=== PATIENT | male | born 1955 | race American Indian/Alaskan Native ===

== ENCOUNTER 2019-09-16 11:54 | Inpatient (IN) | payer OTHER, SELFPAY ==
[~2019-09-16] VITALS: Ht 175.3 cm; Wt 83.4 kg
[~2019-09-16 11:54] MED LIST: ATO40T PO; BENA20TA14 PO; INSLANTI SC; LEVO200T46 PO; LIRA18IN2 SC; METO25TA5 PO; SITA100T7 PO
[2019-09-16] MEDS ORDERED: SODIUM CHLORIDE 0.9% 1,000 ML IV ONE ×3 (12:29→12:45)
[2019-09-16] MEDS ORDERED: ONDANSETRON HCL 4 MG/2 ML VIAL IV ONE ×2 (12:30→12:45)
[2019-09-16] MEDS ORDERED: ONDANSETRON HCL 4 MG/2 ML VIAL ONE (12:34)
[2019-09-16 12:54] LABS: Basophils # (auto) 0.1 10 ^3/uL (0-0.2); Basophils % (auto) 0.4 % (0.0-2.0); Eosinophils # (auto) 0.1 10 ^3/uL (0-0.8); Eosinophils % (auto) 0.7 % (0.0-7.0); Hematocrit 43.1 % (41.0-53.0); Hemoglobin 15.3 g/dL (13.5-17.5); Lymphocytes % (auto) 6.7 % (10.0-50.0); Mean Corpuscular Hemoglobin 31.2 pg (28.0-32.0); Mean Corpuscular Hgb Conc. 35.5 g/dL (32.0-36.0); Mean Corpuscular Volume 87.9 fL (80.0-100.0); Monocytes # (auto) 0.9 10 ^3/uL (0-1.3); Monocytes % (auto) 6.3 % (0.0-12.0); Neutrophils # (auto) 12.5 10 ^3/uL (1.6-8.6); Neutrophils % (auto) 85.9 % (37.0-80.0); Nucleated Red Blood Cells % 0.1 %; Platelet Count (auto) 259 10^3/uL (140-450); Red Cell Distribution Width 13.7 % (11.8-14.3); White Blood Cell 14.6 10^3/uL (4.4-10.8)
[2019-09-16 13:09] LABS: Albumin 3.5 g/dL (3.4-5.0); Anion Gap 14 (5-15); Blood Urea Nitrogen 11 mg/dL (7-18); Calcium 8.6 mg/dL (8.5-10.1); Carbon Dioxide 23 mmol/L (21-32); Chloride 81 mmol/L (98-107); Glucose 199 mg/dL (74-106); Potassium 3.5 mmol/L (3.5-5.1)
[2019-09-16 13:13] LABS: Alanine Aminotransferase 37 U/L (16-61); Alkaline Phosphatase 83 U/L (45-117); Aspartate Aminotransferase 40 U/L (15-37); BUN/Creatinine Ratio 9.6; Bilirubin, Total 2.9 mg/dL (0.2-1.0); GFR African American 83 mL/min; GFR Non-African American 69 mL/min; Total Protein 6.7 g/dL (6.4-8.2)
[2019-09-16 13:22] LABS: Sodium 118 mmol/L (136-145)
[2019-09-16] MEDS ORDERED: ASCORBIC ACID 500 MG TAB PO ONE (13:30)
[2019-09-16] MEDS ORDERED: cefTRIAXone 1GM/50ML D5W 50 ML IV ONE ×2 (13:30→14:15)
[2019-09-16] MEDS ORDERED: PROMETHAZINE HCL 25 MG/ML 1ML IV ONE (14:00)
[2019-09-16] MEDS ORDERED: CHOLECALCIFEROL (VITD3) 1,000UNIT=25mCg TAB ONE (14:08)
[2019-09-16] MEDS: SODIUM CHLORIDE 0.9% 1,000 ML IV SCH ×2 (14:11→23:53)
[2019-09-16] MEDS ORDERED: LORazepam 0.5 MG TAB PO PRN (14:15)
[2019-09-16] MEDS ORDERED: PROMETHAZINE HCL 25 MG/ML 1ML IV PRN (14:15)
[2019-09-16] MEDS ORDERED: MORPHINE SULF INJ 2 MG/ML SYRINGE 1ML IV PRN (14:15)
[2019-09-16] MEDS ORDERED: ACETAMINOPHEN 500 MG TAB PO PRN (14:15)
[2019-09-16] MEDS ORDERED: traMADol HCL 50 MG TAB PO PRN (14:15)
[2019-09-16] MEDS ORDERED: ALBUTEROL SULF 2.5 MG/0.5ML(0.5%) NEB SOLN NEB PRN (14:15)
[2019-09-16] MEDS ORDERED: NITROGLYCERIN 0.4 MG SL TAB SL PRN (14:15)
[2019-09-16] MEDS ORDERED: DEXTROSE (50%) 50ML SYRG IV PRN (14:15)
[2019-09-16] MEDS ORDERED: CHOLECALCIFEROL (VITD3) 1,000UNIT=25mCg TAB PO ONE (14:45)
[2019-09-16 14:46] LABS: Amylase 19 U/L (25-115); Lipase 67 U/L (73-393)
--- NOTE | 2019-09-16 15:20 | NUR ---
Received report from Dee AMBROSIO in ER @1510 and patient to floor at 1520. Telemetry admit from ER CHRISTY EDWARDSALL admitted to Telemetry unit after SBAR received. Patient oriented to TAM JOHN, RN primary RN, and room 235A, and unit policies regarding patient care and visiting hours. Patient now on continuous telemetry monitoring, tele box # 8 . Patient placed on bedside oxygen, weighed by bedscale and encouraged to call if they need something. All questions and concerns addressed, patient verbalized understanding.
[2019-09-16 16:00] VITALS: BP 158/62
[2019-09-16] MEDS: metroNIDAZOLE 500MG/100ML 100 ML IV SCH ×2 (17:04→21:29)
[2019-09-16] MEDS: InsuLIN REG 1unit/0.01ml Soln (100units/ml) SC SCH ×2 (17:29→21:29)
[2019-09-16] MEDS: ACCU-CHEK COMFORT CURVE STRIP VI SCH ×2 (17:30→21:29)
[2019-09-16 18:00] VITALS: BP 162/92
--- NOTE | 2019-09-16 18:59 | NUR ---
Paged immigration lawyer hospitalist regarding patients blood pressure. Dr. De Oliveira called back orders received, will document and carry out
--- NOTE | 2019-09-16 20:15 | NUR ---
Opening Shift Note Assumed care of patient, awake and alert. No S/S of distress/SOB or pain noted. New iv placed to left forearm 22guage. patient tolerated well. Instructed on POC and to call for assist PRN.
[2019-09-16] MEDS: METOPROLOL TARTRATE 25 MG TAB PO SCH (20:30)
[2019-09-16] MEDS: FAMOTIDINE 20 MG TAB PO SCH (21:29)
[2019-09-16 22:00] VITALS: BP 137/87
--- NOTE | 2019-09-16 23:56 | NUR ---
Password set up with patient: Family called regarding patient, no password set up. Spoke with patient. Patient requested password to be December 28.
[2019-09-17 05:03] VITALS: BP 120/80
[2019-09-17] MEDS: metroNIDAZOLE 500MG/100ML 100 ML IV SCH ×2 (06:24→13:13)
[2019-09-17] MEDS: ACCU-CHEK COMFORT CURVE STRIP VI SCH ×4 (06:24→21:37)
[2019-09-17] MEDS: InsuLIN REG 1unit/0.01ml Soln (100units/ml) SC SCH ×4 (07:00→21:40)
--- NOTE | 2019-09-17 07:00 | NUR ---
Unable to take obtained blood draw. Lab notified.
--- NOTE | 2019-09-17 07:30 | NUR ---
Opening Shift Note Assumed care of patient, awake and alert oriented x3. No S/S of distress/SOB or pain reported at this time. Instructed on POC and to call for assist PRN, call light within reach, able to demonstrate how to call for assist, using urinal at bedside, IV patent to left FA, site benign, will continue to monitor for changes Q1hr and PRN.
[2019-09-17 08:00] VITALS: BP 130/68
[2019-09-17] MEDS: cefTRIAXone 1GM/50ML D5W 50 ML IV SCH (09:17)
[2019-09-17] MEDS: METOPROLOL TARTRATE 25 MG TAB PO SCH ×2 (09:17→21:31)
[2019-09-17] MEDS: BENAZEPRIL HCL 10 MG TAB PO SCH (09:18)
[2019-09-17] MEDS: FAMOTIDINE 20 MG TAB PO SCH ×2 (09:18→21:27)
[2019-09-17] MEDS: CHOLECALCIFEROL (VITD3) 1,000UNIT=25mCg TAB PO SCH (09:18)
[2019-09-17 09:19] VITALS: BP 130/68
[2019-09-17 09:50] LABS: Basophils # (auto) 0.1 10 ^3/uL (0-0.2); Basophils % (auto) 0.6 % (0.0-2.0); Eosinophils # (auto) 0.3 10 ^3/uL (0-0.8); Eosinophils % (auto) 2.6 % (0.0-7.0); Hemoglobin 15.4 g/dL (13.5-17.5); Lymphocytes # (auto) 1.8 10 ^3/uL (0.4-5.4); Lymphocytes % (auto) 16.8 % (10.0-50.0); Mean Corpuscular Hemoglobin 30.9 pg (28.0-32.0); Mean Corpuscular Volume 88.4 fL (80.0-100.0); Monocytes # (auto) 1.1 10 ^3/uL (0-1.3); Monocytes % (auto) 10.2 % (0.0-12.0); Neutrophils # (auto) 7.6 10 ^3/uL (1.6-8.6); Neutrophils % (auto) 69.8 % (37.0-80.0); Nucleated Red Blood Cells % 0.2 %; Platelet Count (auto) 295 10^3/uL (140-450); Red Blood Cells 4.97 10^6/uL (4.5-5.90); Red Cell Distribution Width 13.7 % (11.8-14.3); White Blood Cell 10.9 10^3/uL (4.4-10.8)
[2019-09-17 09:55] LABS: Urine Bacteria NONE SEEN /hpf (None Seen); Urine Blood Negative /uL (Negative); Urine Specific Gravity 1.002 (1.001-1.035); Urine WBC <1 /hpf (0 - 3)
[2019-09-17 12:41] LABS: Albumin 3.5 g/dL (3.4-5.0); Calcium 8.2 mg/dL (8.5-10.1); Potassium 3.7 mmol/L (3.5-5.1)
[2019-09-17 12:44] LABS: Bilirubin, Total 2.3 mg/dL (0.2-1.0); Total Protein 7.1 g/dL (6.4-8.2)
[2019-09-17] MEDS: SODIUM CHLORIDE 0.9% 1,000 ML IV SCH (14:00)
[2019-09-17] MEDS ORDERED: POTASSIUM CHL 20 Meq TABLET PO ONE (14:00)
[2019-09-17 14:40] LABS: Amphetamine Screen, Urine NEGATIVE (NEGATIVE); Barbiturate Scree,Urine NEGATIVE (NEGATIVE); Benzodiazephine Screen, Urine NEGATIVE (NEGATIVE); Cannabinoid Screen, Urine NEGATIVE (NEGATIVE); Cocaine Screen, Urine NEGATIVE (NEGATIVE); Opiate Scree,Urine NEGATIVE (NEGATIVE); Phencyclidine Screen, Urine NEGATIVE (NEGATIVE)
[2019-09-17] MEDS ORDERED: MAGNESIUM SULFATE 1GM/100ML 100 ML IV ONE ×2 (14:45→16:15)
[2019-09-17] MEDS: LORazepam 0.5 MG TAB PO PRN (15:37)
--- NOTE | 2019-09-17 15:50 | NUR ---
NOTIFIED OF NEGATIVE COVID RESULTS SPOKE WITH DR BRADY, CONT CARE
--- NOTE | 2019-09-17 16:00 | NUR ---
CARDIOLOGY AT BEDSIDE DR ALVAREZ AT BEDSIDE, DISCUSSING POC WITH PT, CONT CARE
--- NOTE | 2019-09-17 19:20 | NUR ---
Received report from the Day RN Jami. Pt. ambulating along the faust and return to his bed.
--- NOTE | 2019-09-17 20:00 | NUR ---
Assessment done and completed.
[2019-09-17 21:00] VITALS: BP 102/55
[2019-09-17] MEDS: ATORVASTATIN 20 MG TAB PO SCH (21:27)
--- NOTE | 2019-09-17 21:27 | NUR ---
Meds. as scheduled given/administered. Pt. given health teachings about the use and mechanism of actions of the meds. as scheduled. Pt. verbalized understanding.
--- NOTE | 2019-09-17 21:35 | NUR ---
Accucheck @ taken with result of BS = 194 , See s/s coverage of Regular human insulin to be given to the pt.
--- NOTE | 2019-09-17 21:40 | NUR ---
Pt. given 3 units of Regular human Insulin SQ @ the [facility] @ 0 pm. Pt. made aware of his blood sugar and the s/s coverage. Pt. partially verbalized understanding.
--- NOTE | 2019-09-17 22:00 | NUR ---
Pt. ambulating from his room to the Nurses station often times, encouraged pt. to go back to the bed and assisted with needs.
--- NOTE | 2019-09-17 23:50 | NUR ---
Restarted 02 @ 2L/NC for 02 sat. 88 % @ this time. Pt. encouraged to lie down and rest with 02 @ 2L/NC continuous.
[2019-09-18] VITALS (7 sets, daily range): BP systolic 97–128; BP diastolic 58–73
[2019-09-18] MEDS: TEMAZEPAM 15 MG CAP PO PRN ×2 (02:21→23:38)
--- NOTE | 2019-09-18 02:21 | NUR ---
Pt. still awake in bed, unable to sleep. Pt. given Temazepam-Restoril 15 mg. po. @ this time to help relieve insomnia. Pt. encouraged to sleep. 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 Pt. denies chest pain and any pain.
[2019-09-18] MEDS: SODIUM CHLORIDE 0.9% 1,000 ML IV SCH ×2 (02:22→17:26)
--- NOTE | 2019-09-18 04:00 | NUR ---
Pt. finally sleeping without disturbance. SR @ 70 's with 1st Deg. AVB, with BBB @ the monitor Tele # 8. No s/s of pain or discomfort.
[2019-09-18 05:17] LABS: Basophils # (auto) 0.1 10 ^3/uL (0-0.2); Basophils % (auto) 0.7 % (0.0-2.0); Eosinophils # (auto) 0.4 10 ^3/uL (0-0.8); Eosinophils % (auto) 4.4 % (0.0-7.0); Hematocrit 36.8 % (41.0-53.0); Lymphocytes # (auto) 1.5 10 ^3/uL (0.4-5.4); Lymphocytes % (auto) 16.5 % (10.0-50.0); Mean Corpuscular Hemoglobin 30.9 pg (28.0-32.0); Mean Corpuscular Hgb Conc. 35.3 g/dL (32.0-36.0); Mean Corpuscular Volume 87.4 fL (80.0-100.0); Monocytes # (auto) 1.1 10 ^3/uL (0-1.3); Monocytes % (auto) 11.4 % (0.0-12.0); Neutrophils # (auto) 6.2 10 ^3/uL (1.6-8.6); Platelet Count (auto) 228 10^3/uL (140-450); Red Blood Cells 4.21 10^6/uL (4.5-5.90); Red Cell Distribution Width 13.5 % (11.8-14.3); White Blood Cell 9.3 10^3/uL (4.4-10.8)
[2019-09-18 05:34] LABS: Magnesium 2.3 mg/dL (1.6-2.6); Potassium 3.5 mmol/L (3.5-5.1)
[2019-09-18 05:39] LABS: BUN/Creatinine Ratio 14.8; Bilirubin, Total 1.3 mg/dL (0.2-1.0); Total Protein 5.7 g/dL (6.4-8.2)
--- NOTE | 2019-09-18 06:11 | NUR ---
Meds. as scheduled given @ this time. Pt. able to swallow meds. without difficulty.
[2019-09-18] MEDS: InsuLIN REG 1unit/0.01ml Soln (100units/ml) SC SCH ×4 (06:16→21:42)
[2019-09-18] MEDS: ACCU-CHEK COMFORT CURVE STRIP VI SCH ×4 (06:16→21:41)
--- NOTE | 2019-09-18 06:16 | NUR ---
Accucheck taken with result of BS = 117 , No coverage for Regular Human Insulin needed.
[2019-09-18] MEDS ORDERED: LEVOTHYROXINE SODIUM 112 MCG TAB PO SCH (07:00)
[2019-09-18] MEDS ORDERED: LEVOTHYROXINE SODIUM 25 MCG TAB PO SCH ×2 (07:00)
--- NOTE | 2019-09-18 07:42 | NUR ---
Opening Shift Note: Assumed care of patient. Patient asleep at this time. No S/S of distress/SOB or pain. Bed in lowest locked position, side rails up x 2, call light within reach. Bed alarm on for patient safety. Sitter at bedside for patient safety. Patient will instructed on POC and to call for assist PRN, will continue to monitor for changes Q1hr and PRN.
[2019-09-18] MEDS: BENAZEPRIL HCL 10 MG TAB PO SCH (09:23)
[2019-09-18] MEDS: cefTRIAXone 1GM/50ML D5W 50 ML IV SCH (09:23)
[2019-09-18] MEDS: METOPROLOL TARTRATE 25 MG TAB PO SCH (09:23)
[2019-09-18] MEDS: FAMOTIDINE 20 MG TAB PO SCH ×2 (09:24→21:41)
[2019-09-18] MEDS: CHOLECALCIFEROL (VITD3) 1,000UNIT=25mCg TAB PO SCH (09:25)
--- NOTE | 2019-09-18 10:22 | NUR ---
DR. SANTILLAN: Dr. Marshall at bedside. Discussed POC with patient. Patient verbally agreed.
[2019-09-18] MEDS ORDERED: ALBUTEROL SULF 2.5 MG/0.5ML(0.5%) NEB SOLN NEB PRN (11:30)
[2019-09-18] MEDS: LORazepam 0.5 MG TAB PO PRN (14:07)
--- NOTE | 2019-09-18 14:21 | NUR ---
Patient ambulated the faust with sitter.
--- NOTE | 2019-09-18 15:22 | NUR ---
POM Patients own medications brought up from ED. Medications taken to pharmacy. Sticker placed on chart, band placed on patient.
--- NOTE | 2019-09-18 19:06 | NUR ---
CLOSING NOTE: Patient resting in bed. No S/S of pain, distress or SOB at this time. Sitter at bedside for patient safety. Care endorsed to ULISSES RN.
[2019-09-18] MEDS: ATORVASTATIN 20 MG TAB PO SCH (21:41)
[2019-09-19] MEDS: SODIUM CHLORIDE 0.9% 1,000 ML IV SCH ×2 (03:03→17:12)
[2019-09-19 05:00] VITALS: BP 130/71
[2019-09-19] MEDS: ACCU-CHEK COMFORT CURVE STRIP VI SCH ×4 (06:40→22:10)
[2019-09-19] MEDS: InsuLIN REG 1unit/0.01ml Soln (100units/ml) SC SCH ×4 (06:42→22:03)
--- NOTE | 2019-09-19 07:15 | NUR ---
Opening Shift Note: Assumed care of patient. Patient asleep at this time. No S/S of distress/SOB or pain. Bed in lowest locked position, side rails up x 2, call light within reach. Sitter at bedside for patient safety. Patient will be instructed on POC and to call for assist PRN, will continue to monitor for changes Q1hr and PRN.
[2019-09-19 07:57] LABS: Calcium 8.4 mg/dL (8.5-10.1); Potassium 4.4 mmol/L (3.5-5.1)
[2019-09-19 07:59] LABS: BUN/Creatinine Ratio 12.1
[2019-09-19 09:00] VITALS: BP 125/70
[2019-09-19] MEDS: cefTRIAXone 1GM/50ML D5W 50 ML IV SCH (09:15)
[2019-09-19] MEDS: LEVOTHYROXINE SODIUM 100 MCG/5 ML INJ IV SCH (09:15)
[2019-09-19] MEDS: FAMOTIDINE 20 MG TAB PO SCH ×2 (09:16→22:05)
[2019-09-19] MEDS: CHOLECALCIFEROL (VITD3) 1,000UNIT=25mCg TAB PO SCH (09:16)
[2019-09-19] MEDS: BENAZEPRIL HCL 10 MG TAB PO SCH (09:16)
--- NOTE | 2019-09-19 11:20 | NUR ---
RT NOTE: PRN BREATHING TX. NOT INDICATED AT THIS TIME. NO S/S OF RESPIRATORY DISTRESS NOTED. PT. HR 86, RR 18, POX 98% R/A. PT. AWARE TO NOTIFY RN IF BREATHING TX. IS INDICATED.
[2019-09-19 13:00] VITALS: BP 132/83
[2019-09-19] MEDS ORDERED: AMOXICILLIN/CLAVUL 875 MG TAB PO ONE (13:30)
--- NOTE | 2019-09-19 14:01 | NUR ---
URINE SAMPLE COLLECTED AND SENT.
[2019-09-19 14:07] LABS: Urine Bacteria NONE SEEN /hpf (None Seen); Urine Blood Negative /uL (Negative); Urine Specific Gravity 1.004 (1.001-1.035); Urine WBC <1 /hpf (0 - 3)
[2019-09-19 14:44] LABS: Creatinine, Urine 22 mg/dL (30.0-125.0); Protein, Urine < 5.0 mg/dL (0.0-11.9); Sodium Urine 79 mmol/L (40-220)
[2019-09-19 17:00] VITALS: BP 146/89
--- NOTE | 2019-09-19 19:16 | NUR ---
CLOSING NOTE: Patient laying in bed. No S/S of pain. Sitter at bed side. care endorsed to NOC RN.
--- NOTE | 2019-09-19 19:20 | NUR ---
OPENING NOTE Received report from day shift RN. Patient is A&O X's 4 with no s/s of distress. Patient verbalized his name//year it was and that he was in a hospital. Patient reported not really knowing why he came into the hospital. Educated patient on POC and to use call light when in need of assistance. Patient verbalized understanding. Bed is in lowest/locked position with side rails up X's 2 and call light is within reach of patient. Sitter is at bedside. Patient reported some anxiety. Medication was given for anxiety just before report. Will continue care.
[2019-09-19] MEDS: ALPRAZolam 0.25 MG TAB PO PRN (19:23)
--- NOTE | 2019-09-19 20:25 | NUR ---
Respiratory note: PT DOES NOT APPEAR TO BE IN ANY DISTRESS. PRN HHN TX NOT INDICATED AT THIS TIME. HR 78 SPO2 98% ON RA RR 18 PT EDUCATED ON USE OF NURSE CALL BUTTON. WILL CONTINUE TO MONITOR.
[2019-09-19 21:00] VITALS: BP 119/60
[2019-09-19] MEDS: INSULIN LANTUS (GLARGINE) 1 /0.01ml (100units/ml) SC SCH (22:04)
[2019-09-19] MEDS: ATORVASTATIN 20 MG TAB PO SCH (22:04)
[2019-09-19] MEDS: AMOXICILLIN/CLAVUL 875 MG TAB PO SCH (22:04)
[2019-09-19] MEDS: TEMAZEPAM 15 MG CAP PO PRN (22:05)
[2019-09-20 05:08] VITALS: BP 128/89
[2019-09-20] MEDS: InsuLIN REG 1unit/0.01ml Soln (100units/ml) SC SCH ×4 (06:32→22:04)
[2019-09-20] MEDS: ACCU-CHEK COMFORT CURVE STRIP VI SCH ×4 (06:33→21:48)
[2019-09-20] MEDS: SODIUM CHLORIDE 0.9% 1,000 ML IV SCH ×2 (06:33→14:03)
--- NOTE | 2019-09-20 07:20 | NUR ---
Opening Shift Note: Assumed care of patient, awake and alert x 3. No S/S of distress/SOB or pain. Bed in lowest locked position, side rails up x 2, call light within reach. Sitter at bedside for patient safety. Patient instructed on POC and to call for assist PRN, will continue to monitor for changes Q1hr and PRN.
[2019-09-20 07:42] LABS: BUN/Creatinine Ratio 10.5; Calcium 8.3 mg/dL (8.5-10.1); Potassium 4.1 mmol/L (3.5-5.1)
[2019-09-20 09:00] VITALS: BP 128/90
[2019-09-20] MEDS ORDERED: MAGNESIUM OXIDE 400 MG TAB PO ONE (10:00)
--- NOTE | 2019-09-20 10:03 | NUR ---
Assessment Patient is a 63-year-old male alert and oriented. Prior to admission patient lived home with family. Patient informed me he can care for his own ADLs. Patient informed me he has a walker and a cane. Per patient he will return home to his prior living arrangements post discharge and family will transport him home. Advised patient there is a Social Service consult for home health safety evaluation, physical therapy, medication management and vitals. Informed patient clinical information will be faxed to home health agency who are contracted with his health plan. Informed patient he has the right to participate in all discharge planning. Patient verbalized understanding and agrees to discharge plan. Addendum: 09/20/19 at 1004 by ABBY JACKSON Amended: Links added.
[2019-09-20] MEDS: LEVOTHYROXINE SODIUM 100 MCG/5 ML INJ IV SCH (10:58)
[2019-09-20] MEDS: FAMOTIDINE 20 MG TAB PO SCH ×2 (10:58→21:48)
[2019-09-20] MEDS: BENAZEPRIL HCL 10 MG TAB PO SCH (10:58)
[2019-09-20] MEDS: CHOLECALCIFEROL (VITD3) 1,000UNIT=25mCg TAB PO SCH (10:59)
--- NOTE | 2019-09-20 11:17 | NUR ---
I called [facility] out of area case advocate [employer] [phone] and left message requesting authorization for home health as well as a list of participating vendors. Faxed same request to [phone].
[2019-09-20] MEDS: AMOXICILLIN/CLAVUL 875 MG TAB PO SCH ×2 (12:10→21:48)
[2019-09-20 13:00] VITALS: BP 124/89
[2019-09-20] MEDS ORDERED: MAGNESIUM SULFATE 1GM/100ML 100 ML IV ONE (13:15)
--- NOTE | 2019-09-20 14:24 | NUR ---
Nutrition Assessment Notes Please refer to link for full assessment notes. Est energy needs: 0107-4570 kcals (23-25 kcal/kgBW) Est protein needs: 81-89 gms/day (1.0-1.1 gm/kgBW) Will continue to monitor and reassess prn. Addendum: 09/20/19 at [address] Amended: Links added.
[2019-09-20] MEDS: ALPRAZolam 0.25 MG TAB PO PRN (14:29)
[2019-09-20 17:00] VITALS: BP 135/79
--- NOTE | 2019-09-20 17:02 | NUR ---
IV infiltrated. IV removal: Left Wrist IV DC'd with clean sterile technique, catheter fully intact. Pressure dressing applied to site. Patient tolerated well. IV insertion: IV access obtained, via clean sterile technique by inserting 22 gauge catheter at left forearm after 2 attempts. IV secured properly. No trauma to site. Patient tolerated well.
--- NOTE | 2019-09-20 18:15 | NUR ---
Patient removed tele at this time. Will reapply.
--- NOTE | 2019-09-20 18:18 | NUR ---
Patient confused. Per patient "I am ready to go home, doctor discharged me today." Patient continually updated on POC. Patient states "I understand, I'm just scared." Sister Laura called for update. Will continue to monitor.
--- NOTE | 2019-09-20 18:25 | NUR ---
Respiratory note: ASSESSED PT FOR PRN TX PT WAS AWAKE AND ALERT, NO RESP DISTRESS NOTED. HR 95, RR 18, SPO2 98% ON ROOM AIR. BS ARE CLEAR, NO INDICATION FOR TX AT THIS TIME. PT KNOWS TO HAVE RT PAGED IF TX IS NEEDED.
--- NOTE | 2019-09-20 18:40 | NUR ---
Family contact Rena (girlfriend)-
--- NOTE | 2019-09-20 19:29 | NUR ---
CLOSING NOTE: Patient resting in bed. No S/S of pain distress or SOB at this time. Care endorsed to NOC RN
--- NOTE | 2019-09-20 19:30 | NUR ---
Opening Shift Note Assumed care of patient, awake and alert. No S/S of distress/SOB or pain. Sitter at bedside. Instructed on POC and to call for assist PRN, will continue to monitor for changes Q1hr and PRN.
[2019-09-20] MEDS: ATORVASTATIN 20 MG TAB PO SCH (21:48)
[2019-09-20 22:00] VITALS: BP 137/84
[2019-09-20] MEDS: INSULIN LANTUS (GLARGINE) 1 /0.01ml (100units/ml) SC SCH (22:05)
[2019-09-21] VITALS (7 sets, daily range): BP systolic 122–137; BP diastolic 70–84
[2019-09-21] MEDS: ACCU-CHEK COMFORT CURVE STRIP VI SCH ×4 (06:40→21:21)
[2019-09-21] MEDS: InsuLIN REG 1unit/0.01ml Soln (100units/ml) SC SCH ×4 (06:47→21:30)
--- NOTE | 2019-09-21 07:22 | NUR ---
Opening Shift Note Assumed care of patient from noc shift rn, awake and alert. No S/S of distress/SOB or pain. Plan of care discussed, advised to call for assist PRN, will continue to monitor for changes Q1hr and PRN. Sitter at bedside.
[2019-09-21] MEDS: SODIUM CHLORIDE 0.9% 1,000 ML IV SCH (08:35)
[2019-09-21 09:00] LABS: BUN/Creatinine Ratio 12.1; Calcium 8.5 mg/dL (8.5-10.1); Potassium 4.1 mmol/L (3.5-5.1)
[2019-09-21] MEDS: LEVOTHYROXINE SODIUM 100 MCG/5 ML INJ IV SCH (10:03)
[2019-09-21] MEDS: BENAZEPRIL HCL 10 MG TAB PO SCH (10:04)
[2019-09-21] MEDS: AMOXICILLIN/CLAVUL 875 MG TAB PO SCH ×2 (10:04→21:20)
[2019-09-21] MEDS: FAMOTIDINE 20 MG TAB PO SCH ×2 (10:04→21:21)
[2019-09-21] MEDS: CHOLECALCIFEROL (VITD3) 1,000UNIT=25mCg TAB PO SCH (10:04)
--- NOTE | 2019-09-21 10:33 | NUR ---
RT NOTE: PRN BREATHING TX. NOT INDICATED AT THIS TIME. NO S/S OF RESPIRATORY DISTRESS NOTED. PT. SP02 96% R/A. PT. AWARE TO NOTIFY RN IF BREATHING TX. IS NEEDED.
--- NOTE | 2019-09-21 13:25 | NUR ---
I called [facility] [phone] to request list of participating home health providers and authorization for home health, unable to speak with a live person or leave a message.
[2019-09-21] MEDS ORDERED: LEVOTHYROXINE SODIUM 50 MCG TAB PO ONE (14:15)
--- NOTE | 2019-09-21 19:30 | NUR ---
OPENING NOTE REPORT RECEIVED FROM DAY SHIFT RN. PATIENT IS A/OX3 AT THIS TIME. PATIENT IS ON ROOM AIR, NO SOB OR DISTRESS NOTED. PHYSICAL ASSESSMENT DONE-SEE INTERVENTIONS. IV NOTED TO LEFT FOREARM 22G SALINE LOCKED, FLUSHED AND PATENT.PATIENT ABLE TO TURN AND REPOSITION SELF IN BED. POC DISCUSSED, ALL QUESTIONS ANSWERED. SITTER AT BEDSIDE FOR SAFETY PRECAUTIONS. CALL LIGHT WITHIN REACH. WILL MONITOR Q1H PRN THROUGHOUT SHIFT.
--- NOTE | 2019-09-21 19:31 | NUR ---
RT NOTE: PT ON ROOM AIR SPO2 95%, HR 80, RR 18. BS CLEAR. NO TX INDICATED AT THIS TIME. SITTER AT BEDSIDE.
[2019-09-21] MEDS: ATORVASTATIN 20 MG TAB PO SCH (21:21)
[2019-09-21] MEDS: INSULIN LANTUS (GLARGINE) 1 /0.01ml (100units/ml) SC SCH (21:31)
[2019-09-22 05:00] VITALS: BP 109/75
[2019-09-22] MEDS: ACCU-CHEK COMFORT CURVE STRIP VI SCH ×4 (06:10→21:15)
[2019-09-22] MEDS: InsuLIN REG 1unit/0.01ml Soln (100units/ml) SC SCH ×4 (06:13→21:19)
[2019-09-22] MEDS: LEVOTHYROXINE SODIUM 50 MCG TAB PO SCH (06:17)
--- NOTE | 2019-09-22 07:00 | NUR ---
CLOSING PATIENT RESTING COMFORTABLY IN BED, NO S/S OF DISTRESS NOTED SITTER AT BEDSIDE FOR SAFETY WILL ENDORSE CARE TO AM SHIFT RN
--- NOTE | 2019-09-22 08:00 | NUR ---
ASSESSMENT NOTE PT IS ALERT ORIENTED X4, RESTING IN BED IN LOW SWAN POSITION, NO DISTRESS NOTED, ABLE TO SELF REPOSITION AND VERBALIS HIS DEMANDS, PAIN 0/10, CALL LIGHT WITHIN REACH
--- NOTE | 2019-09-22 08:40 | NUR ---
PT ASSESSED FOR PRN HHN TX. PT IS ON ROOM AIR, SPO2 92%, HR 95, RR 18. NO S.S OF RESPIRATORY DISTRESS. HHN TX NOT INDICATED AT THIS TIME. WILL CONTINUE TO MONITOR.
[2019-09-22 08:41] VITALS: BP 125/75
[2019-09-22] MEDS: CHOLECALCIFEROL (VITD3) 1,000UNIT=25mCg TAB PO SCH (09:32)
[2019-09-22] MEDS: BENAZEPRIL HCL 10 MG TAB PO SCH (09:33)
[2019-09-22] MEDS: LEVOTHYROXINE SODIUM 100 MCG/5 ML INJ IV SCH (09:33)
[2019-09-22] MEDS: FAMOTIDINE 20 MG TAB PO SCH ×2 (09:33→21:11)
[2019-09-22] MEDS: AMOXICILLIN/CLAVUL 875 MG TAB PO SCH ×2 (09:47→21:12)
--- NOTE | 2019-09-22 10:00 | NUR ---
DR HANLEY AT BED SIDE FOLLOWING UP ON PT, WITH NEW ORDERS
--- NOTE | 2019-09-22 10:45 | NUR ---
PHYSICAL THERAPY AT BED SIDE ASSISTING PT TO AMBULATE IN THE HALLWAYS, TOLERATED WELL
--- NOTE | 2019-09-22 15:45 | NUR ---
PT STATED I WANT TO GO HOME, EXPLAIN TO PT WHAT IS AMA IS , PT STATED I AM RESPONSIBLE ABOUT MY SELF AND MY THYROID, PT IS CALLING HIS SISTER DANIELLE TO PICK HIM UP
--- NOTE | 2019-09-22 15:50 | NUR ---
DR ESPINOZA MADE AWARE OF PT AMA OVER THE PHONE
--- NOTE | 2019-09-22 15:55 | NUR ---
PATIENT'S SISTER CALLED ME, ASKING ME WHAT IS GOING ON, MADE AWARE THAT PT WANT TO GO HOME AND FOLLOW UP WITH HIS OWN PCP, INFORM ME THAT HER BROTHER DOES NOT HAVE A DOCTOR HERE IN [place], ONLY IN [place] AND HE NEED TO STAY HERE TO FIX HIS THYROID, PT MADE AWARE, CALLING HIS SISTER BACK AGAIN
[2019-09-22 17:27] VITALS: BP 118/78
--- NOTE | 2019-09-22 18:05 | NUR ---
PT CONTINUE STABLE, CONTINUE MONITORING
--- NOTE | 2019-09-22 19:30 | NUR ---
OPENING NOTE PATIENT A/OX3 RESTING IN BED. PHYSICAL ASSESSMENT DONE-SEE INTERVENTIONS. POC DISCUSSED WITH PATIENT, ALL QUESTIONS ANSWERED. SITTER AT BEDSIDE FOR PATIENT SAFETY, WILL MONITOR Q1H PRN THROUGHOUT SHIFT, CALL LIGHT WITHIN REACH.
[2019-09-22] MEDS: ATORVASTATIN 20 MG TAB PO SCH (21:11)
[2019-09-22] MEDS: INSULIN LANTUS (GLARGINE) 1 /0.01ml (100units/ml) SC SCH (21:19)
[2019-09-22 22:00] VITALS: BP 121/76
[2019-09-23] VITALS (9 sets, daily range): BP systolic 91–146; BP diastolic 57–80
[2019-09-23] MEDS ORDERED: SODIUM CHLORIDE 0.9% 500 ML IV ONE (03:00)
--- NOTE | 2019-09-23 03:09 | NUR ---
CHEST PAIN 0205-PATIENT WOKE UP COMPLAINING OF CHEST PAIN 5/10 ON NUMERIC SCALE 0208:VITALS TAKEN AND ARE 97.5F, 146/80, 98BPM, 95% ON ROOM AIR, RR 19/MIN 0210:EKG DONE 0220:NITRO GIVEN 0225: VITALS RECHECKED. BLOOD PRESSURE NOW LOW. MULTIPLE RECHECKS DONE: 86/57, 87/58, 91/59 PATIENT STATES HIS CHEST PAIN IS "BETTER". PATIENT NOW RATES CHEST PAIN AT 4/10 ON NUMERIC SCALE AND STATES "IT'S COMING DOWN". PATIENT ASYMPTOMATIC TO HYPOTENSION 0240: VITALS REASSESSED 97.5F, 92/57, 99 BPM, SPO2 97%, RR 18/MIN. CHEST PAIN NOW DOWN TO 2/10 ON PAIN SCALE. 0255: EKG SIGNED BY HOSPITALIST MARTHA. HOSPITALIST UPDATED ON SITUATION. NEW VERBAL ORDER RECEIVED FOR 500ML NORMAL SALINE BOLUS X 1 TIME. ORDER READ BACK AND VERIFIED ORDER CARRIED OUT . WILL CONTINUE TO MONITOR PATIENT CLOSELY
--- NOTE | 2019-09-23 03:30 | NUR ---
ROUNDS PATIENT STATES CHEST PAIN IS RELIEVED AND DENIES ANY PAIN AT THIS TIME BLOOD PRESSURE NOW AT 111/71
[2019-09-23] MEDS: LEVOTHYROXINE SODIUM 50 MCG TAB PO SCH (06:22)
[2019-09-23] MEDS: ACCU-CHEK COMFORT CURVE STRIP VI SCH ×4 (06:24→21:43)
[2019-09-23] MEDS: InsuLIN REG 1unit/0.01ml Soln (100units/ml) SC SCH ×4 (06:26→21:39)
--- NOTE | 2019-09-23 06:49 | NUR ---
CLOSING PATIENT RESTING COMFORTABLY IN BED. PATIENT DENIES ANY CHEST PAIN OR DISCOMFORT. SITTER AT BEDSIDE FOR SAFETY. WILL ENDORSE CARE TO AM SHIFT RN
--- NOTE | 2019-09-23 09:00 | NUR ---
SPOKE WITH AIDE IN THE PHARMACY, INFORM ME THAT AUGMENT HAVE NOT ARRIVED YET
[2019-09-23] MEDS: FAMOTIDINE 20 MG TAB PO SCH ×2 (09:07→21:37)
[2019-09-23] MEDS: LEVOTHYROXINE SODIUM 100 MCG/5 ML INJ IV SCH (09:07)
[2019-09-23] MEDS: CHOLECALCIFEROL (VITD3) 1,000UNIT=25mCg TAB PO SCH (09:08)
[2019-09-23] MEDS: BENAZEPRIL HCL 10 MG TAB PO SCH (09:08)
--- NOTE | 2019-09-23 09:26 | NUR ---
I called out of area [employer] regarding order for home health on this member. Per Yecenia, we can reach out to any home health agency that will accept this patient and will pay them the Medicare rate. Per Yecenia they will not do an [facility] because it is a Medicare patient.
--- NOTE | 2019-09-23 09:36 | NUR ---
D/C Planning Music Typographer Caity advised me patient medical group is located in [place] and there is no home health agencies who are local who can assist patient. Spoke to patient regarding home health. Patient stated he does not need home health services at the moment because he has family support who can assist with him at home. Will informed nurse.
[2019-09-23] MEDS: AMOXICILLIN/CLAVUL 875 MG TAB PO SCH ×2 (10:00→22:00)
--- NOTE | 2019-09-23 10:00 | NUR ---
PHYSICAL THERAPY AT BED SIDE AMBULATING PT IN THE HALLWAYS, TOLERATING WELL
--- NOTE | 2019-09-23 10:15 | NUR ---
DR HANLEY AT BED SIDE FOLLOWING UP ON PT, EXPLAIN TO PT HOW CRITICAL IS LOW THE THYROID LEVEL AND THE NEED FOR HOSPITAL STAY, PT VERBALIS UNDERSTANDING
--- NOTE | 2019-09-23 12:05 | NUR ---
PT STATED I WANT TO LEAVE AMA, I AM RESPONSIBLE OF MY SELF > CALLED PT SISTER LEFT A BRIEF MESSAGE TO HAVE HER TO CALL US BACK
[2019-09-23] MEDS ORDERED: ALBUTEROL SULF 2.5 MG/0.5ML(0.5%) NEB SOLN NEB PRN (12:30)
[2019-09-23] MEDS ORDERED: IPRATROPIUM BROM 0.5 MG/2.5ML INH SOL NEB PRN (12:30)
--- NOTE | 2019-09-23 14:30 | NUR ---
PT IS AMBULATING IN THE HALLWAYS WITH HIS SITTER, NO DISTRESS NOTED, TOLERATED WELL
--- NOTE | 2019-09-23 17:43 | NUR ---
PT IS AMBULATING IN THE HALLWAYS AGAIN, WITH HIS NURSE AIDE, TOLERATED WELL
--- NOTE | 2019-09-23 18:23 | NUR ---
PT CONTINUE STABLE, SITTING UP EATING DINNER, CONTINUE MONITORING
--- NOTE | 2019-09-23 19:48 | NUR ---
Opening Shift Note Assumed care of patient, awake and alert. No S/S of distress/SOB or pain. Instructed on POC and to call for assist PRN, will continue to monitor for changes Q1hr and PRN.
[2019-09-23] MEDS: ATORVASTATIN 20 MG TAB PO SCH (21:37)
[2019-09-23] MEDS: INSULIN LANTUS (GLARGINE) 1 /0.01ml (100units/ml) SC SCH (21:42)
[2019-09-24 05:00] VITALS: BP 109/73
[2019-09-24] MEDS: ACCU-CHEK COMFORT CURVE STRIP VI SCH ×4 (06:40→22:46)
[2019-09-24] MEDS: InsuLIN REG 1unit/0.01ml Soln (100units/ml) SC SCH ×4 (06:53→23:00)
[2019-09-24] MEDS: LEVOTHYROXINE SODIUM 50 MCG TAB PO SCH ×2 (06:53→08:12)
--- NOTE | 2019-09-24 07:35 | NUR ---
RECEIVED REPORT AND ASSUMED CARE OF PT. A/OX4. DENIED S/S ACUTE DISTRESS. UPDATE PT WITH POC. BED AT LOWEST POSITION. CALL LIGHT AND BELONGINGS WITHIN REACH. WILL CONT TO MONITOR.
--- NOTE | 2019-09-24 07:41 | NUR ---
Synthroid am dose not given, its abebe in the pyxis, needs clarification with the pharmacy. Endorsed to am shift.
[2019-09-24 09:00] VITALS: BP 122/77
[2019-09-24] MEDS: CHOLECALCIFEROL (VITD3) 1,000UNIT=25mCg TAB PO SCH (10:14)
[2019-09-24] MEDS: FAMOTIDINE 20 MG TAB PO SCH ×2 (10:14→22:46)
[2019-09-24] MEDS: AMOXICILLIN/CLAVUL 875 MG TAB PO SCH ×2 (10:14→22:45)
[2019-09-24] MEDS: BENAZEPRIL HCL 10 MG TAB PO SCH (10:14)
[2019-09-24 13:00] VITALS: BP 118/73
[2019-09-24 15:46] VITALS: BP 109/73
--- NOTE | 2019-09-24 16:50 | NUR ---
A/OX4. DENIED S/S ACUTE DISTRESS. DC INSTRUCTIONS GIVEN AND PT VERBALIZED UNDERSTANDING. EMPHASIZED NEED FOR F/U APPOINTMENT. PT WAITING FOR HIS RIDE HOME. CALLED PT SISTER, REBECCA AT [phone] AND LEFT MULTIPLE MSGES.
--- NOTE | 2019-09-24 21:10 | NUR ---
Regarding patient's discharge Spoke with patient's sister Laura regarding picking up patient as patient has been discharged. Sister concerned about caring for patient, reports she does not have the medications available to take care of patient until patient follows up with PCP on Friday and that "is is the hospital's job to ensure he has everything he needs before I come and pick him up, other hart it is not safe for him to come home". Sister insistent that patient have all medications be refilled and with him prior to being picked up by family. Charge nurse Sarah AMBROSIO spoke with Laura at this time. Per charge nurse, obtain an order to hold discharge from infusion pharmacist hospitalist and endorse to dayshift to have primary doctor speak with Laura in AM to go over patient's care. Will page infusion pharmacist hospitalist and continue care.
--- NOTE | 2019-09-24 22:00 | NUR ---
inbound call center agent hospitalist Dr. Fito Corona MD paged regarding discharge, per MD ok to hold discharge and for AM hospitalist to speak with family in AM. Will continue care.
[2019-09-24] MEDS: ATORVASTATIN 20 MG TAB PO SCH (22:45)
[2019-09-24] MEDS: INSULIN LANTUS (GLARGINE) 1 /0.01ml (100units/ml) SC SCH (23:01)
[2019-09-25 05:00] VITALS: BP 108/72
--- NOTE | 2019-09-25 06:33 | NUR ---
Closing Note Patient lying in bed, awake and alert. No s/s of distress. Will endorse care to dayshift RN.
[2019-09-25] MEDS: LEVOTHYROXINE SODIUM 50 MCG TAB PO SCH (06:59)
[2019-09-25] MEDS: ACCU-CHEK COMFORT CURVE STRIP VI SCH (06:59)
[2019-09-25] MEDS: InsuLIN REG 1unit/0.01ml Soln (100units/ml) SC SCH (07:00)
[2019-09-25 09:03] VITALS: BP 117/74
--- NOTE | 2019-09-25 09:20 | NUR ---
PT RX CALLED IN TO [facility],[address], [place] [address].
[2019-09-25] MEDS: FAMOTIDINE 20 MG TAB PO SCH (09:34)
[2019-09-25] MEDS: BENAZEPRIL HCL 10 MG TAB PO SCH (09:34)
[2019-09-25] MEDS: CHOLECALCIFEROL (VITD3) 1,000UNIT=25mCg TAB PO SCH (09:35)
--- NOTE | 2019-09-25 09:41 | NUR ---
A/0X4. DENIED S/S ACUTE DISTRESS. DC INSTRUCTIONS GIVEN AND PT VERBALIZED UNDERSTANDING. EMPHASIZED NEED FOR F/U APPOINTMENT.
== END 2019-09-25 10:00 | disposition home or self-care (01) | DRG 643 ==
LOC: ER 11:54 → TELE 11:55 → TELE-EAST 15:43 → TELE-CENTR 09-20 19:15
PROVIDERS: ADMIT Internal Medicine; ATTEND Internal Medicine
DX: E03.2 Hypothyroidism due to medicaments and other exogenous substances (principal); J96.00 Acute respiratory failure, unspecified whether with hypoxia or hypercapnia; E87.1 Hypo-osmolality and hyponatremia; R65.10 Systemic inflammatory response syndrome (SIRS) of non-infectious origin without acute organ dysfunction; J98.11 Atelectasis; K52.9 Noninfective gastroenteritis and colitis, unspecified; J02.0 Streptococcal pharyngitis; Z95.1 Presence of aortocoronary bypass graft; J44.9 Chronic obstructive pulmonary disease, unspecified; E78.5 Hyperlipidemia, unspecified; E83.42 Hypomagnesemia; E87.6 Hypokalemia; E10.9 Type 1 diabetes mellitus without complications; I10 Essential (primary) hypertension; F17.210 Nicotine dependence, cigarettes, uncomplicated; I25.10 Atherosclerotic heart disease of native coronary artery without angina pectoris; I25.2 Old myocardial infarction; Z79.4 Long term (current) use of insulin; Z80.9 Family history of malignant neoplasm, unspecified; Z82.49 Family history of ischemic heart disease and other diseases of the circulatory system; Z91.19 Patient's noncompliance with other medical treatment and regimen; Z03.818 Encounter for observation for suspected exposure to other biological agents ruled out; E66.9 Obesity, unspecified; T38.1X6A Underdosing of thyroid hormones and substitutes, initial encounter
CPT/HCPCS: 36415; 70450; 71045; 74176; 80048; 80053; 80307; 81001; 82150; 82306; 82570; 82728; 82962; 83036; 83605; 83615; 83690; 83735; 83880; 83935; 84156; 84300; 84436; 84443; 84481; 84484; 84550; 85025; 87040; 87804; 87880; 93005; 94640; 96361; 96365; 96375; 97116; 97163; 97530; G0378; J0696; J1815; J2405; J3490